=== PATIENT | male | born 1945 | race Caucasian/White ===

== ENCOUNTER 2021-08-13 11:26 | Emergency (ER) | payer MEDICARE, BC, OTHER, SELFPAY ==
--- NOTE | ~2021-08-13 | XR_ITS ---
EXAMINATION: XR hip RT min 3V w AP pelvis DATE: 08/13/2021 12:39 INDICATION: Right hip pain. TECHNIQUE: An anteroposterior view of the pelvis and 3 views of right hip were obtained. COMPARISON: None. FINDINGS: Bone alignment is normal. No fracture. There is moderate lumbar spondylosis. There is mild osteoarthritis of the hips. IMPRESSION: 1. Mild osteoarthritis of the hips. Reviewed, dictated and finalized at location A.
--- NOTE | ~2021-08-13 | XR_ITS ---
EXAMINATION: XR lumbar spine 2-3V DATE: 08/13/2021 12:40 INDICATION: Back pain. Fall. TECHNIQUE: 3 views of lumbar spine were obtained. COMPARISON: None. FINDINGS: There is 7 degrees dextrocurvature of lumbar spine. Vertebral body heights are normal. Ther e is severely decreased disc height at L1-L2, mildly decreased disc height at L2-L3 and L3-L4, and mo derately decreased disc height at L4-L5 and L5-S1 with endplate remodeling. There is multilevel sever e facet joint osteoarthritis. Surgical clips in the right upper quadrant are likely from cholecystect rio. IMPRESSION: 1. Severe lumbar spondylosis. Reviewed, dictated and finalized at location A.
--- NOTE | ~2021-08-13 | XR_ITS ---
EXAMINATION: XR knee RT 3V DATE: 08/13/2021 12:39 INDICATION: Right knee injury. TECHNIQUE: 3 views of right knee were obtained. COMPARISON: None. FINDINGS: Bone alignment is normal. No fracture. There is mild osteoarthritis of medial and patellofe moral compartments characterized by tiny osteophytes. No joint space narrowing. No knee joint effusio n. IMPRESSION: 1. Mild right knee osteoarthritis. Reviewed, dictated and finalized at location A.
--- NOTE | ~2021-08-13 | XR_ITS ---
EXAMINATION: XR chest 2V DATE: 08/13/2021 12:39 INDICATION: Shortness of breath. TECHNIQUE: Frontal and lateral views of the chest were obtained. COMPARISON: None. FINDINGS: The chest demonstrates clear lungs without pneumonia, pleural effusion, or pneumothorax. Th e heart size is normal. Surgical clips in the right upper quadrant are likely from cholecystectomy. IMPRESSION: 1. No acute cardiopulmonary disease. Reviewed, dictated and finalized at location A.
[2021-08-13 11:29] VITALS: BP 125/63; PULSE 53; RESP 16; TEMP 36.3; O2SAT 97
--- NOTE | 2021-08-13 11:39 | ECG_ITS ---
Measurements Intervals Frederic Rate: 54 P: 112 CT: 238 QRS: 24 QRSD: 93 T: 26 QT: 410 QTc: 391 Interpretive Statements SINUS BRADYCARDIA WITH FIRST DEGREE AV BLOCK NO PREVIOUS ECG AVAILABLE FOR COMPARISON Electronically Signed On 08-13-2021 16:58:25 CDT by Karen Hand M.D.
--- NOTE | 2021-08-13 12:21 | ED.FALL ---
HPI - Fall General Chief Complaint: Fall Stated Complaint: falls/weakness/back pain Time Seen by Provider: 08/13/21 12:00 Source: patient History of Present Illness HPI Narrative: Patient presents with back pain hip pain and knee pain. Patient recently moved to the area into a new house and has had multiple ground-level falls. Once falling out of his bed and various incidences slipping on his hardwood floor. He is having increasing back pain. Normally has low back pain that radiates down his leg normally is on the left this episode is on the right noticed since his fall out of bed a couple days ago. Is also reporting increased numbness and tingling this to his right foot since that fall and is unable to bear any weight he was concerned so he came to the ER for evaluation. Denies any bowel or bladder incontinence. Related Data Home Medications Medication Instructions Recorded Confirmed albuterol 90 mcg INHALATION 08/13/21 atenolol 25 mg PO DAILY 08/13/21 atorvastatin 20 mg PO DAILY 08/13/21 enalapril maleate 5 mg PO QID 08/13/21 gabapentin 100 mg PO TID 08/13/21 oxycodone-acetaminophen PRN 08/13/21 sertraline [Zoloft] 50 mg PO DAILY 08/13/21 tamsulosin 0.4 mg PO DAILY 08/13/21 Allergies Allergy/AdvReac Type Severity Reaction Status Date / Time amoxicillin [From Augmentin] AdvReac Nausea and Verified 08/13/21 11:41 Vomiting clavulanic acid AdvReac Nausea and Verified 08/13/21 11:41 [From Augmentin] Vomiting codeine AdvReac Nausea and Verified 08/13/21 11:41 Vomiting Review of Systems Review of Systems: CONSTITUTIONAL: Denies fever, chills, or sweats. EYES: Denies visual changes, redness, or discharge. ENT: Denies rhinorrhea, congestion, sore throat, or otalgia. CARDIOVASCULAR: Denies chest pain, palpitations, or edema. RESPIRATORY: Denies cough or dyspnea. GASTROINTESTINAL: Denies abdominal pain, nausea, vomiting, or diarrhea. GENITOURINARY: Denies dysuria or hematuria. SKIN: Denies rash or itching. MUSCULOSKELETAL: Reports back pain hip pain and right knee pain NEUROLOGIC: Denies headache, dizziness, or weakness. PSYCHIATRIC: Denies anxiety or depression. All systems reviewed & are unremarkable except as noted in HPI and below PMFSH Past Medical History Medical History (Updated 08/13/21 @ 13:37 by Ambrosio Del Rio MD) Back pain Social History Social History (Updated 08/13/21 @ 12:25 by Ambrosio Del Rio MD) Living arrangements: with family Exam Narrative: GENERAL: Well-appearing, well-nourished, and in no acute distress. HEAD: Normocephalic, atraumatic. EYES: PERRLA and EOMI. ENT: Nares clear, no rhinorrhea or epistaxis. Mucous membranes moist. NECK: Supple. No masses. No JVD CHEST: Clear to auscultation. No respiratory distress. No wheezes rales or rhonchi HEART: Regular rate and rhythm. No murmur heard. Normal peripheral pulses. ABDOMEN: Soft, nontender, nondistended, normal active bowel sounds. BACK: Diffuse low back pain right worse than left no focal bony tenderness EXTREMITIES: Normal range of motion. Diffuse tenderness to the right hip and knee left knee tenderness more prominent on the medial aspect. No obvious deformity to the joints no ecchymoses no bruising SKIN: Warm, dry, no rash. NEURO: 4 out of 5 strength with dorsi and plantar flexion on the right foot with sensation intact to light touch alert and oriented x3. PSYCH: Normal mood and affect. Course Reevaluation(s) Reevaluation #1: Patient feeling improved results and plan reviewed with patient. Patient is comfortable outpatient plan. Date: 08/13/21 Time: 13:34 Vital Signs Vital signs: Vital Signs Temperature 36.3 C L 08/13/21 11:29 Pulse Rate 53 L 08/13/21 11:29 Respiratory Rate 16 08/13/21 11:29 Blood Pressure 125/63 08/13/21 11:29 Pulse Oximetry 97 08/13/21 11:29 Temperature 36.3 C L 08/13/21 11:29 Pulse Rate 87 08/13/21 13:47 Respiratory Rate 16 08/13/21 13:47 Blood P
[2021-08-13 12:23] LABS: Basophils Absolute Auto 0.1 K/mm3 (0.0-0.1); Basophils Percent Auto 0.8 % (0.2-1.2); Eosinophils Absolute Auto 0.3 K/mm3 (0-0.3); Eosinophils Percent Auto 4.5 % (0-4.4); Hematocrit 42.7 % (42.0-52.0); Immature Granulocyte Absolute 0.02 K/mm3 (0.00-0.031); Immature Granulocyte Percent A 0.3 % (0-0.5); Lymphocytes Absolute Auto 2.17 K/mm3 (0.9-3.2); Lymphocytes Percent Auto 33.5 % (18.3-44.2); Mean Corpuscular HGB Conc 32.8 g/dl (32-36); Mean Corpuscular Volume 91.4 fl (80-100); Mean Platelet Volume 10.9 fl (7.4-10.4); Monocytes Absolute Auto 0.6 K/mm3 (0.1-0.6); Monocytes Percent Auto 8.6 % (2.6-8.5); Neutrophils Absolute Auto 3.4 K/mm3 (1.3-6.7); Neutrophils Percent Auto 52.3 % (45.5-73.1); Platelet Count Result 177 k/mm3 (150-375); Red Blood Count 4.67 M/mm3 (4.6-6.20); Red Cell Distribution Width 13.4 % (11.5-14.5); White Blood Count 6.5 K/mm3 (4.5-10.0)
[2021-08-13 12:34] LABS: Alanine Aminotransferase 19 U/L (4-50); Albumin Level 4.4 g/dL (3.5-5.1); Alkaline Phosphatase 67 U/L (38-126); Anion Gap 8 mmol/L (8-16); Aspartate Amino Transferase 24 U/L (17-59); Bilirubin,Total 0.5 mg/dL (0.2-1.3); Blood Urea Nitrogen 21 mg/dL (9-20); Calcium 9.1 mg/dL (8.4-10.2); Carbon Dioxide 28 mmol/L (22-30); Chloride 100 mmol/L (98-107); Estimated CRCL calculation 79 ml/min; Estimated Glomerular Filt Rate > 60; Glucose 140 mg/dL (65-110); Sodium 136 mmol/L (137-145)
[2021-08-13] MEDS: KETOROLAC 30 MG/ML VIAL (*BKC) IM (12:43)
[2021-08-13] MEDS: CYCLOBENZAPRINE HCL 10 MG TABLET PO (12:43)
[2021-08-13 12:53] LABS: Add Urine Microscopic? NO; Appearance Urine Clear (Clear); Bilirubin Urine Negative (Negative); Blood Urine Negative (Negative); Color Urine Yellow (Yellow); Glucose Urine UA Negative (Negative); Ketones Urine Negative (Negative); Leukocyte Esterase Ur Negative LEU/UL (Negative); Nitrate Urine Negative (Negative); Protein Urine Negative (Negative); Specific Grav Ur 1.012 (1.001-1.035); Urobilinogen Urine Negative mg/dL (<2.0)
[2021-08-13 13:47] VITALS: BP 111/73; PULSE 87; RESP 16; O2SAT 100
== END 2021-08-13 13:48 | disposition home or self-care (01) ==
PROVIDERS: Emergency Medicine; Emergency Provider Emergency Medicine
DX: M54.42 Lumbago with sciatica, left side (principal); M54.41 Lumbago with sciatica, right side; M16.0 Bilateral primary osteoarthritis of hip; M17.11 Unilateral primary osteoarthritis, right knee; M47.816 Spondylosis without myelopathy or radiculopathy, lumbar region; R00.1 Bradycardia, unspecified; I44.0 Atrioventricular block, first degree; W06.XXXA Fall from bed, initial encounter
CPT/HCPCS: 36415; 71046; 72100; 73502; 73562; 80053; 81003; 85025; 93005; 96372; 99284; A9270; J1885

== ENCOUNTER → 2023-05-03 12:51 | Outpatient (CLI) | payer MEDICARE, BC, SELFPAY ==
--- NOTE | ~2023-05-03 | MR_ITS ---
EXAMINATION: MR thoracic spine wo con DATE: 05/03/2023 13:58 INDICATION: Thoracic spine pain. TECHNIQUE: Magnetic resonance imaging (MRI) of the thoracic spine was performed without intravenous c ontrast. Sagittal localizer T1-weighted FSE of the cervicothoracic spine was obtained. Thoracic spine sequences included sagittal T2-weighted FSE, sagittal T1-weighted SE, Sagittal T2-weighted FS FSE, a nd axial T2-weighted FSE. COMPARISON: None FINDINGS: A degree mid thoracic levocurvature. Sagittal alignment is normal. Vertebral body heights are normal. There are few small T1 hyperintense hemangiomas in the lower thoracic spine. There are fibrofatty de generative endplate changes atL1-L2. Marrow signal is otherwise normal. There is mild right-sided dis c height loss at T3-T4 and T4-T5. Annular fissure and central to left paracentral disc extrusion with disc material extending a few millimeter cephalad and caudal to the level of the endplates at C7-T1. This results in mild central canal stenosis at this level. Mild disc bulge at T12-L1. The remaining thoracic discs do not extend beyond the endplate margins. Multilevel mild thoracic facet osteoarthri tis as well as osteoarthritis at several of the thoracic costovertebral articulations which contribut es to multilevel mild bilateral thoracic neural foraminal stenosis. Posterior disc osteophyte complex at T12-L1 which at the inferior margin of the imaging on the sagittal images are not included on the axial images which suggests a moderate stenosis at this level. There is normal spinal cord signal. T he caudal tip of the conus is not definitively identified, likely at the level of L1. Paravertebral s oft tissues are unremarkable. IMPRESSION: 1. Mild midthoracic levocurvature with mild spondylosis. Reviewed, dictated and finalized at location A. [employer]
== END ==
PROVIDERS: Visit Provider Nurse Practitioner Family
DX: M47.894 Other spondylosis, thoracic region (principal)
CPT/HCPCS: 72146